=== PATIENT | male | born 1960 | race Caucasian/White ===

== ENCOUNTER 2021-10-02 12:30 | Outpatient (CLI) | payer BC, SELFPAY ==
--- NOTE | 2021-10-02 12:45 | RAD_ITS ---
STUDY: X-RAY - LUMBAR SPINE REASON FOR EXAM: Male, 61 years old. DISC DEGENERATION TECHNIQUE: 3 view(s) of the lumbar spine were obtained. COMPARISON: None FINDINGS: Normal lumbar lordosis. Mild dextroscoliosis centered at L3. 6 lumbar type vertebral bodies. There is a normal alignment of the vertebrae. There is multilevel endplate spondylosis of the lumbar vertebrae. There is multi-level degenerative disc disease with multi-level disc space narrowing. Facet hypertrophy in the lower lumbar spine The soft tissue structures are unremarkable. RAD/Lumbar Spine 2 or 3 Views IMPRESSION: Mild dextroscoliosis with diffuse degenerative disc disease. MRI would be useful. Electronically Signed: Ramone Dong MD at 6:55 EST ,
--- NOTE | 2021-10-02 12:45 | RAD_ITS ---
STUDY: X-RAY - CERVICAL SPINE REASON FOR EXAM: Male, 61 years old. DISC DEGENERATION TECHNIQUE: 3 view(s) of the cervical spine were obtained. COMPARISON: None FINDINGS: Normal anterior atlantoaxial articulation. Normal odontoid process. Normal cervical lordosis. There is multi-level endplate spondylosis. There is multi-level degenerative disc disease with multilevel disc space narrowing. There is multi-level osseous foraminal stenosis. 2 mm retrolisthesis of C4 on C5 and C5 on C6. The soft tissue structures are unremarkable. RAD/Cerv Spine 4 or 5 Views IMPRESSION: Moderate degenerative disc disease lower cervical spine with 2 mm retrolisthesis of C4 on C5 and C5 on C6. MRI would be useful. Electronically Signed: Ramone Dong MD at 6:56 EST ,
== END 2021-10-02 23:59 | disposition home or self-care (01) ==
LOC: RAD 12:39
PROVIDERS: PCP Internal Medicine; Referring Provider Anesthesiology Pain Medicine; Visit Provider Anesthesiology Pain Medicine
DX: M50.30 Other cervical disc degeneration, unspecified cervical region (principal); M51.37 Other intervertebral disc degeneration, lumbosacral region
CPT/HCPCS: 72050; 72100

== ENCOUNTER 2021-11-01 15:40 | Outpatient (CLI) | payer BC, SELFPAY ==
[2021-11-01 16:30] LABS: Amphetamine Urine VISTA NEGATIVE (<1000 ng/mL); Barbiturate Urine VISTA NEGATIVE (< 200 ng/mL); Benzodiazepine Urine VISTA NEGATIVE (< 200 ng/mL); Cocaine Urine VISTA NEGATIVE (< 300 ng/mL); Ecstacy Urine VISTA NEGATIVE (< 500 ng/mL); Methadone Urine VISTA NEGATIVE (< 300 ng/mL); PCP Urine VISTA NEGATIVE (< 25 ng/mL); THC Urine VISTA NEGATIVE (< 50 ng/mL); Vista UDS pH Range 6
== END 2021-11-01 23:59 | disposition home or self-care (01) ==
PROVIDERS: PCP Internal Medicine; Visit Provider Anesthesiology Pain Medicine
DX: F11.20 Opioid dependence, uncomplicated (principal)
CPT/HCPCS: 80307

== ENCOUNTER → 2025-04-27 | Outpatient (CLI) | payer BC, SELFPAY ==
--- NOTE | 2025-04-27 10:01 | RAD_ITS ---
PROCEDURE: LUMBAR SPINE 2 OR 3 VIEWS 04/27/2025 REASON FOR EXAM: RADICULOPATHY, CERVICAL REGION TECHNIQUE: Procedure Code: RADSPLL Modality: DX Procedure: LUMBAR SPINE 2 OR 3 VIEWS COMPARISON: None FINDINGS: Vertebrae: Multilevel advanced degenerative changes with suggestion of chronic age indeterminate deformities of spinous processes. Discs: Advanced multilevel disc space narrowing with endplate osteophytes. Alignment: Scoliosis of lower thoracic and lumbar spine. Other: RAD/Lumbar Spine 2 or 3 Views IMPRESSION: Multilevel degenerative changes of visualized thoracolumbar spine. There is hastings ggestion of chronic age-indeterminate deformities of spinous processes. Further correlation with MRI lumbar spine can be obtained if there is high clin ical suspicion for cord compression. Reading Location: [id number]
--- NOTE | 2025-04-27 10:01 | RAD_ITS ---
PROCEDURE: THORACIC SPINE 3 VIEWS 04/27/2025 REASON FOR EXAM: RADICULOPATHY, CERVICAL REGION TECHNIQUE: Procedure Code: RADSPT Modality: DX Procedure: THORACIC SPINE 3 VIEWS COMPARISON: None FINDINGS: Vertebrae: Multilevel degenerative changes of thoracic spine. Discs: advanced multilevel disc space narrowing with endplate osteophytes. Alignment: Scoliosis of thoracolumbar spine. Other: RAD/Thoracic Spine 3 Views IMPRESSION: Multilevel degenerative changes with reduced disc height space. If there is hi gh clinical suspicion for cord compression or radiculopathy. MRI thoracic spine can be obtained. Reading Location: [id number]
== END | disposition home or self-care (01) ==
PROVIDERS: PCP Internal Medicine; Referring Provider Anesthesiology Pain Medicine; Visit Provider Anesthesiology Pain Medicine
DX: M54.12 Radiculopathy, cervical region (principal)
CPT/HCPCS: 72072; 72100